=== PATIENT | female | born 1990 | race Caucasian/White ===

== ENCOUNTER → 2021-08-15 | Outpatient (CLI) | payer BC ==
[2021-08-15 22:45] LABS: Basophils # (A) 0.04 X 10*3/uL (0.00-0.10); Basophils % (A) 0.4 %; Eosinophils # (A) 0.15 X 10*3/uL (0.04-0.35); Eosinophils % (A) 1.5 %; HGB 13.7 g/dL (12.0-15.0); Immature Grans, Automated 0.3 %; Lymphocytes # (A) 2.91 X 10*3/uL (0.90-5.00); Lymphocytes % (A) 28.8 %; MCH 29.8 pg (27.0-32.0); MCHC 32.6 g/dL (32.0-37.0); MCV 91.5 fL (80.0-97.0); Monocytes # (A) 0.64 X 10*3/uL (0.20-1.00); Monocytes % (A) 6.3 %; NRBC Per 100 WBC 0 /100 WBCS (0.0-0.0); Neutrophils # (A) 6.34 X 10*3/uL (1.80-7.70); Neutrophils % (A) 62.7 %; Platelet Count 418 X 10*3/uL (140-440); RBC 4.59 X 10*6/uL (4.10-5.20); RDW 12.6 % (11.5-14.5); WBC 10.11 X 10*3/uL (4.50-10.00)
== END | disposition home or self-care (01) ==
LOC: LABPAT 15:21
PROVIDERS: ATTEND Obstetrics & Gynecology
DX: Z01.812 Encounter for preprocedural laboratory examination (principal); N75.0 Cyst of Bartholin's gland
CPT/HCPCS: 85025

== ENCOUNTER → 2021-08-18 | Day surgery (SDC) | payer BC ==
[2021-08-16 14:29] VITALS: BMI 35.4
[~2021-08-18] MED LIST: BACITRACIN ZINC 500 UNIT/GM OINT 28.4 GM TUBE TOPICAL ONE; DEXAMETHASONE SOD PHOSPHATE 4 MG/ML 1 ML VIAL IV ONE; HYDROmorphone 0.5 MG/0.5 ML SYRINGE IVP PRN; KETOROLAC 15 MG/ML 1 ML VIAL ONE; LACTATED RINGERS 1,000 ML IV SCH; LIDOCAINE 1%-EPI 1:100,000 20 ML VIAL SQ ONE; LIDOCAINE 2% INJ 20 MG/ML (2 ML VIAL) ONE; MIDAZOLAM 2 MG/2 ML VIAL IV PRN; MIDAZOLAM 2 MG/2 ML VIAL ONE; ONDANSETRON 4 MG/2 ML VIAL IVP ONE; PROPOFOL 10 MG/ML 20 ML VIAL IV ONE; SCOPOLAMINE 1 MG/72 HR PATCH TRANSDERM ONE; fentaNYL (PF) 50 MCG/ML 2 ML AMP ONE
[2021-08-18 07:19] VITALS: RESP 16; TEMP 97.6
--- NOTE | 2021-08-18 08:40 | P.OP ---
Date of Procedure: 08/18/21 Preoperative Diagnosis: Recurrent Bartholin's gland cyst Postoperative Diagnosis: Same Procedure(s) Performed: Marsupialization of right Bartholin's gland cyst Anesthesia: MAC, local Surgeon: Nola Zhu Estimated Blood Loss (ml): 5 IV fluids (ml): 300 Urine output (ml): 20 Pathology: none sent Condition: stable Disposition: PACU Indications for Procedure: Recurrent right Bartholin's gland cyst Operative Findings: 3 cm right Bartholin's gland cyst with gelatinous cyst material, no abscess Description of Procedure: After the patient was met in the preoperative holding area and all questions were answered, she was taken to the operating room where anesthetic was administered without incident. She was in positioned, prepped and draped in the dorsal lithotomy position. Bladder drained for 20 mL of clear urine. The right Bartholin's gland was palpated. Small amount of lidocaine plus epinephrine was infused subcutaneously. A linear incision was made immediately external to the hymeneal ring on the right side. This is approximately 1.5 cm long. A moderate amount of gelatinous, brown tinged material was expressed. Hemostat was utilized to gently explore the cyst cavity. The cyst cavity was then flushed with approximately 30 mL of sterile saline. The boundaries of the cyst wall were easily visible. 3-0 Vicryl suture was utilized to tack the cyst wall to the external vaginal mucosa in an interrupted fashion circumferentially. Hemostasis was noted. Small amount of quarter-inch iodoform gauze was then packed into the base of the cyst and. Bacitracin was applied. EBL was less than 5 hours. Patient was awoken from anesthetic without incident and transported to recovery in good condition.
[2021-08-18 10:41] VITALS: BP 117/77; PULSE 71
== END | disposition home or self-care (01) ==
LOC: OR 06:51
PROVIDERS: ATTEND Obstetrics & Gynecology
DX: N75.0 Cyst of Bartholin's gland (principal); Z88.0 Allergy status to penicillin; Z91.09 Other allergy status, other than to drugs and biological substances
CPT/HCPCS: 81025; 56440; J2250; J1100; J2405; J3010; J1885; J2704; J2001